=== PATIENT | female | born 1975 | race Two or more races ===

== ENCOUNTER 2018-10-16 11:10 | Emergency (ER) | payer MEDICAID ==
[~2018-10-16] VITALS: Ht 154.9 cm; Wt 96.2 kg
[2018-10-16 11:37] VITALS: BP 153/80
== END 2018-10-16 13:13 | disposition home or self-care (01) ==
LOC: ER 11:16
DX: S60.011A Contusion of right thumb without damage to nail, initial encounter (principal); I10 Essential (primary) hypertension; W20.8XXA Other cause of strike by thrown, projected or falling object, initial encounter; Y93.89 Activity, other specified; Y92.89 Other specified places as the place of occurrence of the external cause; Y99.8 Other external cause status
CPT/HCPCS: 73130-TC